=== PATIENT | male | born 1950 | race Caucasian/White ===

== ENCOUNTER 2017-12-23 16:32 | Emergency (ER) | payer MEDICARE, MEDICAID ==
--- NOTE | 2017-12-23 17:10 | EDM.PDOC ---
ED HPI GENERAL MEDICAL PROBLEM - General Chief Complaint: Laceration Stated Complaint: CUT THUMB [phone] Time Seen by Provider: 12/23/17 16:50 Source of Information: Reports: Patient, RN, RN Notes Reviewed History Limitations: Reports: No Limitations - History of Present Illness INITIAL COMMENTS - FREE TEXT/NARRATIVE: Tien is a 67 yo male who presents after sustaining a laceration to his left thumb. He reports that he was cutting wood and got his finger cut by the blade of a jointer. He wrapped his finger up prior to coming into the ED. Relates that his tetanus is up to date. Onset: Today Onset Time: 16:30 Duration: Minutes: Quality: Reports: Ache Severity: Mild Improves with: Reports: Rest Worsens with: Reports: Movement Associated Symptoms: Reports: No Other Symptoms Left 1-Thumb Pain Score (Numeric/FACES): 5 - Related Data Allergies Allergy/AdvReac Type Severity Reaction Status Date / Time No Known Allergies Allergy Verified 12/23/17 17:09 ED ROS GENERAL - Review of Systems Review Of Systems: ROS reveals no pertinent complaints other than HPI. ED EXAM, SKIN/RASH Exam: See Below Exam Limited By: No Limitations General Appearance: Alert, WD/WN, No Apparent Distress Eye Exam: Bilateral Eye: PERRL Ears: Normal External Exam, Normal Canal, Hearing Grossly Normal, Normal TMs Nose: Normal Inspection, Normal Mucosa, No Blood Throat/Mouth: Normal Inspection, Normal Lips, Normal Teeth, Normal Gums, Normal Oropharynx, Normal Voice, No Airway Compromise Head: Atraumatic, Normocephalic Neck: Normal Inspection, Supple, Non-Tender, Full Range of Motion Respiratory/Chest: No Respiratory Distress, Lungs Clear, Normal Breath Sounds, No Accessory Muscle Use, Chest Non-Tender Cardiovascular: Normal Peripheral Pulses, Regular Rate, Rhythm, No Edema, No Gallop, No JVD, No Murmur, No Rub GI/Abdominal: Normal Bowel Sounds, Soft, Non-Tender, No Organomegaly, No Distention, No Abnormal Bruit, No Mass (Male) Exam: Deferred Rectal (Males) Exam: Deferred Back Exam: Normal Inspection, Full Range of Motion, NT Extremities: Normal Capillary Refill, Other (Avulsion to left thumb. Bleeding controlled. Large clot noted on tip of thumb.) Neurological: Alert, Oriented, CN II-XII Intact, Normal Cognition, Normal Gait, Normal Reflexes, No Motor/Sensory Deficits Psychiatric: Normal Affect, Normal Mood Skin: Warm, Dry, Normal Color, Wound/Incision (Left thumb. Avulsion injury noted. Bleeding controlled. ) Lymphatic: No Adenopathy ED SKIN PROCEDURES - Laceration/Wound Repair Left Distal Finger Lac/Wound length In cm: 1.5 Appearance: Subcutaneous Distal NVT: Neuro & Vascular Intact Anesthetic Type: Digital (Digital and Local block) Local Anesthesia - Lidocaine (Xylocaine): 1% Plain, Other (0.25% Bupivican used to digital block) Local Anesthetic Volume: 3cc Skin Prep: Chlorhexidine (Hibiciens), Providone-Iodine (Betadine) Exploration/Debridement/Repair: Wound Explored, Minimal Debridement Closed with: Sutures Suture Size: 3-0 Suture Type: Prolene, Simple (Simple suture at ends of laceration. Mattress suture to middle of laceration.), Mattress Drain Placement: No Sterile Dressing Applied: Nurse Tetanus Status Addressed: Yes Complications: Yes Complication Description: Total avulsion injury to distal thumb left hand Course - Vital Signs Last Recorded V/S: Last Vital Signs Temp 98.9 F 12/23/17 16:58 Pulse 99 12/23/17 16:58 Resp 20 12/23/17 16:58 BP 149/96 H 12/23/17 16:58 Pulse Ox 98 12/23/17 16:58 - Orders/Labs/Meds Orders: Active Orders 24 hr Category Date Time Status Bacitracin [Bacitracin Oint 1 GM] Med 12/23/17 17:59 Once 1 dose TOP ONETIME ONE Labs: Laboratory Tests 12/23/17 Range/Units 17:00 POC Glucose 54 L (70-105) mg/dl Meds: Medications Discontinued Medications Generic Name Dose Route Start Last Admin Trade Name Freq PRN Reason Stop Dose Admin Bupivacaine HCl 10 ml 12/23/17 17:13 Sensorcaine-Mpf 0.25% INJECT 12/23/17 17:14 ONETIME ONE Lidocaine HCl 30 ml 12/23/17 17:13 Xylocaine-Mpf 1% INJECT 12/23/17 17:14 ONETIME ONE Departure - Departure Time of Disposition: 17:59 Disposition: Home, Self-Care 01 Condition: Good Clinical Impression: Laceration of left thumb with damage to nail Qualifiers: Encounter type: initial encounter Foreign body presence: without foreign body Qualified Code(s): S61.112A - Laceration without foreign body of left thumb with damage to nail, initial encounter - Discharge Information Instructions: Laceration Care, Adult, [id number], Stitches, Kianna, or Adhesive Wound Closure, [id number], Pain Medicine Instructions, [id number] Forms: ED Department Discharge Care Plan Goals: Change dressing every 24 hours. Monitor for signs of infections including fever, streaks going up your hand/ arm. Keflex four times a day for the next 10 days [place] 1 tablet every 6 hours as needed for pain. Do not drive while you are taking the medications. Suture removal in 14 days
[2017-12-23] MEDS ORDERED: Lidocaine 1% 30 ML SDV INJECT ONE (17:13)
[2017-12-23] MEDS ORDERED: Bupivacaine 0.25% 10 ML SDV INJECT ONE (17:13)
[2017-12-23] MEDS ORDERED: Cephalexin 500 MG Cap PO ONE (17:59)
[2017-12-23] MEDS ORDERED: Bacitracin Oint 1 GM U/D Packet TOP ONE (17:59)
== END 2017-12-23 18:22 | disposition home or self-care (01) ==
LOC: DL.ED 16:32
DX: S61.112A Laceration without foreign body of left thumb with damage to nail, initial encounter (principal); W26.8XXA Contact with other sharp object(s), not elsewhere classified, initial encounter
CPT/HCPCS: 12001; 73140; 82962; 99283; A9270